=== PATIENT | male | born 1970 | race Caucasian/White ===

== ENCOUNTER 2017-04-04 06:52 | Emergency (ER) | payer SELFPAY ==
[~2017-04-04] VITALS: Ht 180.3 cm; Wt 83.9 kg
[2017-04-04 07:00] VITALS: BP 169/105
[2017-04-04] MEDS ORDERED: SULF1TAB24 PO (07:23)
--- NOTE | 2017-04-04 07:23 | PHYS DOC ---
Past Medical History Past Medical History: No Pertinent History Adult General Chief Complaint Chief Complaint: INSECT BITE HPI HPI Patient is a 46 year old male who presents with arm abscess. Pt is concerned that he could have been bit. He first had a lesion about 5 days ago on distal upper arm, that has since improved. Now with a lesion mid forearm and wrist area. Unsure if tdap utd. Review of Systems Review of Systems Constitutional: Denies fever or chills [] Eyes: Denies change in visual acuity, redness, or eye pain [] HENT: Denies nasal congestion or sore throat [] Respiratory: Denies cough or shortness of breath [] Musculoskeletal: per hpi Integument: Denies rash or skin lesions [] Neurologic: Denies headache, focal weakness or sensory changes [] Current Medications Current Medications Current Medications Medications (Trade) Dose Ordered Sig/[place] Start Time Stop Time Status Last Admin Dose Admin Diphtheria/ Tetanus/Acell Pertussis (Boostrix) 0.5 ml ONCE ONCE 04/04/17 07:30 04/04/17 07:31 DC 04/04/17 07:28 0.5 ML Lidocaine/ Epinephrine (Xylocaine 1%-Epi 1:100,000) 20 ml 1X ONCE 04/04/17 07:30 04/04/17 07:31 DC 04/04/17 07:28 20 ML Allergies Allergies Allergies Coded Allergies Type Severity Reaction Last Updated Verified No Known Drug Allergies 04/04/17 No Physical Exam Physical Exam Constitutional: Well developed, well nourished, no acute distress, non-toxic appearance. [] HENT: Normocephalic, atraumatic, bilateral external ears normal, oropharynx moist Cardiovascular:Heart rate regular rhythm Lungs & Thorax: no resp distress Skin: Warm, dry, RUE with healing lesion posterior distall upper arm, no drainage/fluctuance or ttp, forearm with mid lateral small pinpoint lesion with white head but minimal surrounding erythema or underlying fluctance, overlying distal ulnar has scab lesion with seropurulent drainage, minimal, mild fluctuance and surrounding erythema, FROM of the joint, no signs of septic arthritis. Neurologic: Alert and oriented X 3, normal motor function, normal sensory function, no focal deficits noted. [] Psychologic: Affect normal, judgement normal, mood normal. [] Current Patient Data Vital Signs Vital Signs Date Time Temp Pulse Resp B/P (MAP) Pulse Ox O2 Delivery O2 Flow Rate FiO2 04/04/17 07:00 99.2 98 16 99 Room Air 99.2 EKG EKG [] Radiology/Procedures Radiology/Procedures Indication: abscess Procedure: The patient was positioned appropriately. Local anesthesia was lidocaine 1% with epi. A [address] in mid forearm with expression of pus, distal forearm unroofed scab with minimal pus drainage. The drainage cavity was irrigated , no packing indicated. The patients tetanus status updated as needed. The patient tolerated the procedure well. Complications: none.[] Course & Med Decision Making Course & Med Decision Making Pertinent Labs and Imaging studies reviewed. (See chart for details) tdap updated, pt agreed to I&D, lidocaine with epi ordered. Dc'd with bactrim for 7 days, care instructions and return precautions given. Dragon Disclaimer Dragon Disclaimer This electronic medical record was generated, in whole or in part, using a voice recognition dictation system. Departure Departure Impression: Primary Impression: Arm abscess Disposition: 01 HOME, SELF-CARE Condition: STABLE Patient Instructions: Abscess, Care After Scripts Sulfamethoxazole/Trimethoprim (BACTRIM DS TABLET) 1 Each Tablet 1 TAB PO BID, #14 TAB Prov: KYAW MASTERS MD 04/04/17 KYAW MASTERS MD Apr 04, 2017 07:23
[2017-04-04] MEDS ORDERED: DIPHTH,PERTUSS(ACELL),TET TOX 0.5 ML DISP.SYRIN. VAX IM ONE (07:30)
[2017-04-04] MEDS ORDERED: LIDOCAINE 1%/EPI 1:100,000 20 ML VIAL. INJ ONE (07:30)
== END 2017-04-04 08:10 | disposition home or self-care (01) ==
LOC: ER 06:52
DX: L02.413 Cutaneous abscess of right upper limb (principal)
CPT/HCPCS: 10060; 90471; 90715; 99283; J3490

== ENCOUNTER 2020-12-18 14:17 | Emergency (ER) | payer SELFPAY ==
[~2020-12-18] VITALS: Ht 185.4 cm; Wt 82.7 kg
[~2020-12-18 14:17] MED LIST: SULF1TAB24 PO
[2020-12-18 14:30] VITALS: BP 179/92
[2020-12-18] MEDS ORDERED: NEOMY/BACITR/POLYMYXIN OINT PACKET. TP ONE (16:00)
[2020-12-18] MEDS ORDERED: LIDOCAINE (700MG/PATCH) PATCH. TD SCH (16:00)
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
[2020-12-18] MEDS ORDERED: LIDO1ADH78 TP (16:43)
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
== END 2020-12-18 17:10 | disposition home or self-care (01) ==
LOC: ER 14:17 → EEVIPCON 14:17 → ER 17:10
DX: S22.31XA Fracture of one rib, right side, initial encounter for closed fracture (principal); S00.81XA Abrasion of other part of head, initial encounter; M50.30 Other cervical disc degeneration, unspecified cervical region; F15.10 Other stimulant abuse, uncomplicated; F17.200 Nicotine dependence, unspecified, uncomplicated; Z90.5 Acquired absence of kidney; Y08.89XA Assault by other specified means, initial encounter; Y93.9 Activity, unspecified; Y92.89 Other specified places as the place of occurrence of the external cause; Y99.8 Other external cause status
CPT/HCPCS: 70450; 70486; 71250; 72125; 74176; 99285; G0238

== ENCOUNTER 2022-01-07 11:56 | Emergency (ER) | payer OTHER ==
[~2022-01-07] VITALS: Ht 180.3 cm; Wt 84.2 kg
[~2022-01-07 11:56] MED LIST changes: +LIDO1ADH78 TP
[2022-01-07] MEDS ORDERED: IBUPROFEN 400 MG TABLET. PO ONE (12:30)
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
[2022-01-07 13:29] VITALS: BP 151/73
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
== END 2022-01-07 14:00 | disposition left against medical advice (07) ==
LOC: ER 11:56
DX: S20.212A Contusion of left front wall of thorax, initial encounter (principal); F17.200 Nicotine dependence, unspecified, uncomplicated; V29.9XXA Motorcycle rider (driver) (passenger) injured in unspecified traffic accident, initial encounter; Y92.488 Other paved roadways as the place of occurrence of the external cause; Y93.89 Activity, other specified; Y99.8 Other external cause status
CPT/HCPCS: 71101; 99284